=== PATIENT | female | born 1985 | race Caucasian/White ===

== ENCOUNTER 2016-05-17 11:46 | Emergency (ER) | payer OTHER ==
[2016-05-17] MEDS ORDERED: CYCLOBENZAPRINE HCL 10 MG TABLET ONE (12:44)
[2016-05-17] MEDS ORDERED: KETOROLAC TROMETHAMINE 30 MG/ML 1 ML VIAL ONE (12:44)
== END 2016-05-17 12:57 | disposition home or self-care (01) ==
LOC: ED 11:46
DX: M54.9 Dorsalgia, unspecified (principal); V43.52XA Car driver injured in collision with other type car in traffic accident, initial encounter; Y92.488 Other paved roadways as the place of occurrence of the external cause
CPT/HCPCS: 99283 ×2; 96372; J1885